=== PATIENT | male | born 2000 | race Caucasian/White ===

== ENCOUNTER 2023-10-24 11:29 | Emergency (ER) | payer BC ==
[2023-10-24] MEDS: Ibuprofen 800 MG Tab PO ONE (13:12)
[2023-10-24] MEDS: Acetaminophen 325 MG Tab PO ONE (13:12)
== END 2023-10-24 14:33 | disposition home or self-care (01) ==
LOC: JD.ED 11:29
DX: S93.402A Sprain of unspecified ligament of left ankle, initial encounter (principal); X50.0XXA Overexertion from strenuous movement or load, initial encounter; Y93.39 Activity, other involving climbing, rappelling and jumping off
CPT/HCPCS: 73590; 73610; 73630; 99283; A9270; 99282